=== PATIENT | male | born 1945 | race Caucasian/White ===

== ENCOUNTER 2018-03-23 20:54 | Emergency (ER) | payer OTHER ==
[~2018-03-23] VITALS: Ht 170.2 cm; Wt 63.5 kg
[~2018-03-23 20:54] MED LIST: ALLO100T PO; CLOP75TA41 PO; ENTA200T4 PO; FLUO-125 PO; FOSI10TA2 PO; FURO40TA4 PO; GLIP-116 PO; METF-372 PO; METO2.5T11 PO; MORP1INJ PO; POTA-167 PO; VER240ST PO; VER40T PO; [UNRECOGNIZED DRUG - CODE] PO; [UNRECOGNIZED DRUG - CODE] PO
[2018-03-23 21:34] LABS: Urine Bacteria NONE SEEN /hpf (None Seen); Urine Blood Negative /uL (Negative); Urine Specific Gravity 1.004 (1.001-1.035); Urine WBC <1 /hpf (0 - 3)
[2018-03-23 21:57] LABS: Basophils # (auto) 0.1 uL; Basophils % (auto) 0.9 % (0.0-2.0); Eosinophils # (auto) 0.3 uL; Eosinophils % (auto) 4.3 % (0.0-7.0); Lymphocytes # (auto) 0.7 uL; Lymphocytes % (auto) 9.8 % (10.0-50.0); Mean Corpuscular Hemoglobin 29.2 pg (28.0-32.0); Mean Corpuscular Hgb Conc. 34.4 g/dL (32.0-36.0); Monocytes # (auto) 0.6 uL; Monocytes % (auto) 8.2 % (0.0-12.0); Neutrophils # (auto) 5.5 uL; Neutrophils % (auto) 76.8 % (37.0-80.0); Platelet Count (auto) 317 10^3/uL (140-450); Red Blood Cells 3.42 10^6/uL (4.5-5.90); Red Cell Distribution Width 15.5 % (11.8-14.3); White Blood Cell 7.1 10^3/uL (4.4-10.8)
[2018-03-23 22:10] LABS: INR 0.94 (0.9-1.15); Partial Thromboplastin Time 29.8 sec (23.78-33.04); Prothrombin Time 10.1 sec (9.27-12.13)
[2018-03-23 22:11] LABS: Albumin 2.9 g/dL (3.4-5.0); Anion Gap 12 (5-15); Blood Urea Nitrogen 22 mg/dL (7-18); Calcium 9.1 mg/dL (8.5-10.1); Carbon Dioxide 23 mmol/L (21-32); Chloride 102 mmol/L (98-107); Glucose 211 mg/dL (74-106); Magnesium 1.9 mg/dL (1.6-2.6); Potassium 4.3 mmol/L (3.5-5.1); Sodium 137 mmol/L (136-145)
[2018-03-23 22:13] LABS: Alanine Aminotransferase 13 U/L (16-61); Aspartate Aminotransferase 27 U/L (15-37); BUN/Creatinine Ratio 19.8; GFR African American 83 mL/min; GFR Non-African American 69 mL/min
[2018-03-23 22:18] LABS: Alkaline Phosphatase 88 U/L (45-117); Bilirubin, Total 0.4 mg/dL (0.2-1.0); Total Protein 7.3 g/dL (6.4-8.2)
[2018-03-24] MEDS ORDERED: SODIUM CHLORIDE 0.9% 1,000 ML IV ONE (02:30)
[2018-03-24 06:00] VITALS: BP 102/52
== END 2018-03-24 06:11 | disposition home or self-care (01) ==
LOC: EDBD 20:54 → EDUNIT# 20:54 → ER 20:59
DX: I11.0 Hypertensive heart disease with heart failure (principal); I50.9 Heart failure, unspecified; E11.9 Type 2 diabetes mellitus without complications; E78.5 Hyperlipidemia, unspecified; D64.9 Anemia, unspecified; E46 Unspecified protein-calorie malnutrition; Z68.21 Body mass index [BMI] 21.0-21.9, adult
CPT/HCPCS: 36415; 36600; 71045; 80053; 81001; 82805; 82962; 83735; 83880; 84484; 85025; 85610; 85730; 86141; 93005; 99285; J7030

== ENCOUNTER 2018-05-15 22:51 | Emergency (ER) | payer OTHER ==
[~2018-05-15] VITALS: Ht 170.2 cm; Wt 65.8 kg
[2018-05-16 00:31] LABS: Basophils # (auto) 0.1 uL; Basophils % (auto) 1.3 % (0.0-2.0); Eosinophils # (auto) 0.2 uL; Eosinophils % (auto) 4.8 % (0.0-7.0); Hematocrit 30.3 % (41.0-53.0); Hemoglobin 10.1 g/dL (13.5-17.5); Lymphocytes # (auto) 1.3 uL; Lymphocytes % (auto) 24.8 % (10.0-50.0); Mean Corpuscular Hemoglobin 28.9 pg (28.0-32.0); Mean Corpuscular Hgb Conc. 33.4 g/dL (32.0-36.0); Mean Corpuscular Volume 86.6 fL (80.0-100.0); Monocytes # (auto) 0.4 uL; Monocytes % (auto) 8.5 % (0.0-12.0); Neutrophils # (auto) 3.1 uL; Neutrophils % (auto) 60.6 % (37.0-80.0); Nucleated Red Blood Cells % 0.1 %; Platelet Count (auto) 251 10^3/uL (140-450); White Blood Cell 5.1 10^3/uL (4.4-10.8)
[2018-05-16 00:46] LABS: Albumin 3.1 g/dL (3.4-5.0); Anion Gap 12 (5-15); Blood Urea Nitrogen 31 mg/dL (7-18); Calcium 8.6 mg/dL (8.5-10.1); Carbon Dioxide 20 mmol/L (21-32); Chloride 105 mmol/L (98-107); Glucose 149 mg/dL (74-106); Potassium 3.6 mmol/L (3.5-5.1); Sodium 137 mmol/L (136-145)
[2018-05-16 00:49] LABS: GFR African American 73 mL/min; GFR Non-African American 60 mL/min
[2018-05-16 00:54] LABS: Alanine Aminotransferase 8 U/L (16-61); Alkaline Phosphatase 91 U/L (45-117); Aspartate Aminotransferase 26 U/L (15-37); Bilirubin, Total 0.4 mg/dL (0.2-1.0); INR 0.96 (0.9-1.15); Partial Thromboplastin Time 30.8 sec (23.78-33.04); Prothrombin Time 10.3 sec (9.27-12.13); Total Protein 7.6 g/dL (6.4-8.2)
[2018-05-16 01:14] LABS: Urine Bacteria NONE SEEN /hpf (None Seen); Urine Blood Negative /uL (Negative); Urine Specific Gravity 1.006 (1.001-1.035); Urine WBC 1 /hpf (0 - 3)
[2018-05-16] MEDS ORDERED: IPRATROPIUM BROM 0.5 MG/2.5ML INH SOL NEB ONE (03:00)
[2018-05-16] MEDS ORDERED: ALBUTEROL SULF 2.5 MG/0.5ML(0.5%) NEB SOLN NEB ONE (03:00)
[2018-05-16] MEDS ORDERED: LORazepam 0.5 MG TAB PO ONE (04:00)
[2018-05-16] MEDS ORDERED: LORazepam 2MG/ML-1ML VIAL IV ONE (04:00)
[2018-05-16 08:30] VITALS: BP 100/32
== END 2018-05-16 04:19 | disposition home or self-care (01) ==
LOC: EDBD 22:51 → ER 23:01
DX: R06.00 Dyspnea, unspecified (principal); F41.9 Anxiety disorder, unspecified; I11.0 Hypertensive heart disease with heart failure; I50.9 Heart failure, unspecified; E11.9 Type 2 diabetes mellitus without complications; Z95.1 Presence of aortocoronary bypass graft; Z90.89 Acquired absence of other organs
CPT/HCPCS: 36415; 71045; 80053; 81001; 82962; 83735; 83880; 84484; 85025; 85379; 85610; 85730; 93005; 94640; 99285; J7611; J7644

== ENCOUNTER 2018-10-18 11:03 | Emergency (ER) | payer OTHER ==
[~2018-10-18] VITALS: Ht 162.6 cm; Wt 72.6 kg
[2018-10-18] MEDS ORDERED: EPINEPHrine HCL 1 MG/10 ML SYRG IV ONE (11:04)
[2018-10-18] MEDS ORDERED: SODIUM BICARBONATE 8.4% INJ 50ML SYRINGE IV ONE (11:04)
[2018-10-18] MEDS ORDERED: ATROPINE SULF 1 MG/10ml SYR IV ONE (11:04)
[2018-10-18] MEDS ORDERED: CALCIUM CHLOR(10%) 100MG/ML 10ML SYRINGE IV ONE (11:04)
[2018-10-18 11:34] VITALS: BP 59/23
== END 2018-10-18 19:39 | disposition expired ==
LOC: EDUNIT# 11:03 → ER 11:03
DX: I46.9 Cardiac arrest, cause unspecified (principal); J44.9 Chronic obstructive pulmonary disease, unspecified; F41.9 Anxiety disorder, unspecified; F32.9 Major depressive disorder, single episode, unspecified; E11.9 Type 2 diabetes mellitus without complications; E78.5 Hyperlipidemia, unspecified; I10 Essential (primary) hypertension; Z95.1 Presence of aortocoronary bypass graft; Z79.899 Other long term (current) drug therapy
CPT/HCPCS: 92950; 99285; J0171; 94002